=== PATIENT | female | born 1970 | race Caucasian/White ===

== ENCOUNTER 2017-10-06 12:19 | Day surgery (SDC) | payer SELFPAY ==
[~2017-10-06 12:19] MED LIST: Lactated Ringers 1,000 ML IV SCH; Lidocaine 2% 5 ML SDV ONE; Propofol 200 MG/20 ML SDV ONE; Sodium Chloride 0.9% 10 ML Syringe FLUSH PRN; Sodium Chloride 0.9% 2.5 ML Syringe FLUSH PRN
--- NOTE | 2017-10-06 13:06 | PCM.PREANE ---
Preanesthetic Assessment - Anesthesia/Transfusion/Family Hx Anesthesia History: Prior Anesthesia Without Reaction Family History of Anesthesia Reaction: No Transfusion History: No Prior Transfusion(s) Intubation History: Unknown - Review of Systems General: No Symptoms Pulmonary: No Symptoms Cardiovascular: No Symptoms Gastrointestinal: Other (screening procedure) Neurological: No Symptoms Other: Reports: None - Physical Assessment O2 Sat by Pulse Oximetry: 100 Respiratory Rate: 16 Vital Signs: Last Vital Signs Temp 36.6 C 10/06/17 12:27 Pulse 63 10/06/17 12:27 Resp 16 10/06/17 12:27 BP 108/65 10/06/17 12:27 Pulse Ox 100 10/06/17 12:27 Height: 1.65 m Weight: 85.275 kg ASA Class: 2 Mental Status: Alert & Oriented x3 Airway Class: Mallampati = 2 Dentition: Reports: Normal Dentition Thyro-Mental Finger Breadths: 3 Mouth Opening Finger Breadths: 3 ROM/Head Extension: Full Lungs: Clear to Auscultation, Normal Respiratory Effort Cardiovascular: Regular Rate, Regular Rhythm - Allergies Allergies/Adverse Reactions: Allergies Allergy/AdvReac Type Severity Reaction Status Date / Time No Known Allergies Allergy Verified 10/03/17 10:16 - Blood Blood Available: No - Anesthesia Plan Pre-Op Medication Ordered: None - Acknowledgements Anesthesia Type Planned: MAC Pt an Appropriate Candidate for the Planned Anesthesia: Yes Alternatives and Risks of Anesthesia Discussed w Pt/Guardian: Yes Pt/Guardian Understands and Agrees with Anesthesia Plan: Yes PreAnesthesia Questionnaire HEENT History: Reports: Other (See Below) Other HEENT History: uses glasses for driving MANAGER LOSS PREVENTION History: Reports: Musculoskeletal History: Reports: Fracture Other Musculoskeletal History: hx of fx left ankle Neurological History: Reports: Other (See Below) Other Neuro History: fatigue, hx of motion sickness Endocrine/Metabolic History: Reports: Obesity/BMI 30+, Other (See Below) ( gained 60 pound, no known etiology) Hematologic History: Reports: Anemia - Past Surgical History HEENT Surgical History: Reports: Oral Surgery Other HEENT Surgeries/Procedures: wisdom teeth Female Surgical History: Reports: Hysterectomy (TVH) - SUBSTANCE USE Smoking Status *Q: Never Smoker Recreational Drug Use History: No - HOME MEDS Home Medications: Home Meds . [No Known Home Meds] 10/03/17 [History] - CURRENT (IN HOUSE) MEDS Current Meds: Current Medications Lactated Ringer's (Ringers, Lactated) 1,000 mls @ 125 mls/hr IV ASDIRECTED QUINTON Last Admin: 10/06/17 12:30 Dose: 125 mls/hr Sodium Chloride (Saline Flush) 10 ml FLUSH ASDIRECTED PRN PRN Reason: Keep Vein Open Sodium Chloride (Saline Flush) 2.5 ml FLUSH ASDIRECTED PRN PRN Reason: Keep Vein Open Sodium Chloride (Saline Flush) 10 ml FLUSH ASDIRECTED PRN PRN Reason: Keep Vein Open Sodium Chloride (Saline Flush) 2.5 ml FLUSH ASDIRECTED PRN PRN Reason: Keep Vein Open Discontinued Medications Lidocaine (Xylocaine-Mpf 2%) Confirm Administered Dose 5 ml .ROUTE .STK-MED ONE Stop: 10/06/17 07:35 Propofol (Diprivan 20 Ml) Confirm Administered Dose 400 mg .ROUTE .STK-MED ONE Stop: 10/06/17 07:35
[2017-10-06] MEDS ORDERED: Propofol 200 MG/20 ML SDV ONE (14:11)
--- NOTE | 2017-10-06 14:21 | PCM.OPNOTE ---
- General Post-Op/Procedure Note Date of Surgery/Procedure: 10/06/17 Operative Procedure(s): Diagnostic EGD and colonoscopy Findings: Diverticulosis Grade 1 hemorrhoids Pre Op Diagnosis: Anemia Post-Op Diagnosis: Grade 1 hemorrhoids, diverticulosis Anesthesia Technique: REZA Primary Surgeon: Tabitha Carbajal Condition: Good
--- NOTE | 2017-10-06 14:43 | PCM.POSTAN ---
POST ANESTHESIA ASSESSMENT - MENTAL STATUS Mental Status: Alert, Oriented - RESPIRATORY Respiratory Status: Respiratory Rate WNL, Airway Patent, O2 Saturation Stable - CARDIOVASCULAR CV Status: Pulse Rate WNL, Blood Pressure Stable - GASTROINTESTINAL GI Status: No Symptoms - POST OP HYDRATION Hydration Status: Adequate & Stable
--- NOTE | 2017-10-06 15:03 | PCM48HPAN ---
Post Anesthesia Note - EVALUATION WITHIN 48HRS OF ANESTHETIC Vital Signs in Normal Range: Yes Patient Participated in Evaluation: Yes Respiratory Function Stable: Yes Airway Patent: Yes Cardiovascular Function Stable: Yes Hydration Status Stable: Yes Pain Control Satisfactory: Yes Nausea and Vomiting Control Satisfactory: Yes Mental Status Recovered: Yes Resp Rate: 12 - COMMENTS/OBSERVATIONS Free Text/Narrative:: no anesthesia problems
--- NOTE | 2017-10-06 15:41 | OR ---
SURGEON: SANDIP RIVERS MD DATE OF PROCEDURE: 10/06/2017 PREOPERATIVE DIAGNOSIS: Microcytic anemia. POSTOPERATIVE DIAGNOSES: 1. Diverticulosis. 2. Grade 1 hemorrhoids. PROCEDURES PERFORMED: Diagnostic EGD and colonoscopy. ANESTHESIA: Monitored anesthesia care. INSTRUMENT USED: Olympus endoscope and colonoscope. EXTENT OF EXAM: To the second portion of duodenum, to the cecum. PREPARATION: Good. LIMITATIONS: None. INDICATION FOR EXAMINATION: The patient is a 47-year-old female, who presents with microcytic anemia. We discussed the need for a diagnostic EGD and colonoscopy. We discussed the procedures as well as expected perioperative course. We discussed the risks including bleeding, infection, or damage to surrounding structures including perforation. The patient verbalized understanding and wishes to proceed. PROCEDURE IN DETAIL: The patient was brought to the endoscopy suite and placed in the left lateral decubitus position. A time-out was completed verifying the patient's name, age, date of , allergies, and procedure to be performed. A bite block was placed in the patient's mouth, and monitored anesthesia care induced. Continuous oxygen was provided via nasal cannula throughout the procedure. After adequate sedation was achieved, a well lubricated endoscope was placed in the patient's mouth and advanced under direct visualization to the second portion of duodenum. This appeared normal and a photograph was taken. The scope was then fully withdrawn while examining the color, texture, anatomy, and integrity of mucosa of the upper GI tract. The patient's intestinal mucosa was free of pathology. The scope was brought in the stomach and a photograph was taken of the GE junction and pylorus. These appeared normal. The gastric mucosa had no evidence of inflammation or ulceration. Biopsies were taken of the gastric antrum, body, and fundus and sent for histologic review. The scope was then brought into the distal esophagus and a photograph was taken of the Z- line, which appeared normal. There was no evidence of distal esophagitis. The remainder of her esophageal mucosa appeared healthy. The scope was then removed from the patient. This portion of procedure was terminated. A digital rectal exam was performed. This exam was within normal limits. A well lubricated colonoscope was inserted in the rectum and advanced under direct visualization to the level of cecum. The cecum was identified by visual and anatomic landmarks. A photograph was taken of the cecal cap. I was able to partially retroflex the scope within the cecum, but I did not get a picture. These both appeared normal. The scope was then fully withdrawn while examining the color, texture, anatomy, and integrity of the mucosa from the cecum to the anal canal. The patient was found to have a diffuse diverticulosis throughout the colon. The scope was then brought into the rectum and retroflexed to allow visualization of the anal canal opening. The patient was noted to have some mildly enlarged hemorrhoids consistent with grade 1 hemorrhoids. A photograph was taken. The scope was then straightened out and removed from the patient. The cecum to anus time was 6 minutes. The patient tolerated the procedure well, and was taken to PACU in stable condition. ENDOSCOPIC DIAGNOSES: 1. Normal esophagogastroduodenoscopy. 2. Diverticulosis. 3. Grade 1 hemorrhoids. RECOMMENDATIONS: Follow up in clinic in 2 weeks. NILSA LAYNE /[id number]
== END 2017-10-06 15:12 | disposition home or self-care (01) ==
LOC: MW.SDS 12:19
PROVIDERS: ATTEND Surgery
DX: D50.9 Iron deficiency anemia, unspecified (principal); R07.9 Chest pain, unspecified; R53.83 Other fatigue; G47.10 Hypersomnia, unspecified; E66.9 Obesity, unspecified; R06.83 Snoring; K57.30 Diverticulosis of large intestine without perforation or abscess without bleeding; K64.0 First degree hemorrhoids; Z68.31 Body mass index [BMI] 31.0-31.9, adult; Z90.710 Acquired absence of both cervix and uterus
CPT/HCPCS: 43239; 45378; J7120; 00813; 88305; 88312; J2704